=== PATIENT | male | born 1990 | race Two or more races ===

== ENCOUNTER 2023-10-11 16:53 | Emergency (ER) | payer BC, OTHER ==
[~2023-10-11] VITALS: Ht 188 cm; Wt 127.0 kg
[2023-10-11 17:27] VITALS: BP 146/90
== END 2023-10-11 20:04 | disposition home or self-care (01) ==
LOC: ER 16:53
DX: M79.672 Pain in left foot (principal); L84 Corns and callosities
CPT/HCPCS: 73630; 99283-25